=== PATIENT | female | born 1945 | race Caucasian/White ===

== ENCOUNTER 2018-02-12 11:42 | Emergency (ER) | payer OTHER ==
[~2018-02-12] VITALS: Ht 160 cm; Wt 50.0 kg
[2018-02-12 12:17] VITALS: BP 107/68
== END 2018-02-12 17:53 | disposition left against medical advice (07) ==
LOC: ER 11:42
DX: Z53.21 Procedure and treatment not carried out due to patient leaving prior to being seen by health care provider (principal)

== ENCOUNTER 2018-02-12 18:05 | Emergency (ER) | payer OTHER ==
[~2018-02-12] VITALS: Ht 162.6 cm; Wt 61.0 kg
[2018-02-12 18:59] VITALS: BP 132/70
== END 2018-02-12 22:27 | disposition left against medical advice (07) ==
LOC: ER 18:05
DX: Z53.21 Procedure and treatment not carried out due to patient leaving prior to being seen by health care provider (principal)

== ENCOUNTER 2019-06-05 02:55 | Emergency (ER) | payer MEDICARE, MEDICAID ==
[~2019-06-05] VITALS: Ht 160 cm; Wt 50.0 kg
[2019-06-05 06:13] VITALS: BP 134/87
== END 2019-06-05 06:14 | disposition home or self-care (01) ==
LOC: ER 03:54
DX: J01.90 Acute sinusitis, unspecified (principal); J06.9 Acute upper respiratory infection, unspecified
CPT/HCPCS: 71045; 99283

== ENCOUNTER 2019-08-12 13:16 | Inpatient (IN) | payer MEDICARE, OTHER ==
[~2019-08-12] VITALS: Ht 160 cm; Wt 47.6 kg
[2019-08-12] MEDS ORDERED: VISCOUS LIDOCAINE 2% 15 ML UDC PO STA (13:57)
[2019-08-12] MEDS ORDERED: SODIUM CHLORIDE 0.9% 1,000 ML IV ONE (13:57)
[2019-08-12] MEDS ORDERED: MAGNESIUM/ALUMINUM HYDROXIDE/SIMETHICONE 30ML UDC PO STA (13:57)
[2019-08-12] MEDS ORDERED: DICYCLOMINE 10 MG/5 ML ORAL SYR PO STA (13:57)
[2019-08-12 15:10] LABS: HEMATOCRIT. 40.4 % (36.0-48.0); HEMOGLOBIN. 13.9 g/dL (12.0-16.0); MEAN CORPUSCULAR HEMOGLOBIN 30.6 pg (28.0-32.0); MEAN CORPUSCULAR VOLUME 88.9 fL (81.0-99.0); PLATELET 182 x1000/uL (130-400); RED BLOOD CELL COUNT 4.55 mill/uL (4.2-5.4); RED CELL DISTRIBUTION WIDTH 13.5 % (11.6-14.6)
[2019-08-12 15:22] LABS: CHLORIDE 105 mEq/L (98-107)
[2019-08-12] MEDS ORDERED: POTASSIUM CHLORIDE 20MEQ TABLET SR PO ONE (15:45)
[2019-08-12 16:40] LABS: PLATELET ESTIMATE NORMAL
[2019-08-12 17:43] LABS: CLARITY URINE CLOUDY (CLEAR); COLOR URINE DARK YELLOW (YELLOW); KETONES URINE 1+ (NEGATIVE); LEUKOCYTE ESTERASE URINE 2+ (NEGATIVE); NITRITE URINE NEGATIVE (NEGATIVE); OCCULT BLOOD URINE NEGATIVE (NEGATIVE); PROTEIN URINE 2+ (NEGATIVE)
[2019-08-12] MEDS ORDERED: METRONIDAZOLE 500MG TABLET PO SCH (22:11)
[2019-08-12] MEDS ORDERED: MORPHINE SULFATE 4 MG/ML CPJ (NOT FOR IM USE) IV PRN (22:15)
[2019-08-13] MEDS: LORAZEPAM 1MG TABLET PO PRN (03:51)
[2019-08-13 04:30] VITALS: BP 142/69
[2019-08-13] MEDS ORDERED: MORPHINE SULFATE 2 MG/ML CPJ (NOT FOR IM USE) IV PRN (05:45)
[2019-08-13] MEDS: METRONIDAZOLE 500MG TABLET PO SCH ×3 (06:32→20:55)
[2019-08-13 08:00] VITALS: BP 139/67
[2019-08-13] MEDS: SODIUM CHL 0.9% + KCL 20MEQ/L 1,000 ML IV SCH ×2 (08:00→17:50)
[2019-08-13 09:37] LABS: HEMATOCRIT 38.5 % (36.0-48.0); HEMOGLOBIN 13.2 g/dL (12.0-16.0); MEAN CORPUSCULAR HEMOGLOBIN 30.6 pg (28.0-32.0); MEAN CORPUSCULAR VOLUME 89.2 fL (81.0-99.0); PLATELET 187 x1000/uL (130-400); RED BLOOD CELL COUNT 4.31 mill/uL (4.2-5.4); RED CELL DISTRIBUTION WIDTH 13.5 % (11.6-14.6)
[2019-08-13 09:40] LABS: CHLORIDE 110 mEq/L (98-107)
[2019-08-13 12:00] VITALS: BP 126/74
[2019-08-13] MEDS: CEFTRIAXONE 1,000 MG in DEXTROSE 5% WATER 50 ML IV SCH (13:44)
[2019-08-13 16:00] VITALS: BP 129/70
[2019-08-13 20:00] VITALS: BP 166/76
[2019-08-14] VITALS (7 sets, daily range): BP systolic 140–160; BP diastolic 54–73
[2019-08-14] MEDS: LORAZEPAM 1MG TABLET PO PRN ×3 (01:15→20:55)
[2019-08-14] MEDS: SODIUM CHL 0.9% + KCL 20MEQ/L 1,000 ML IV SCH ×2 (05:15→12:52)
[2019-08-14] MEDS: METRONIDAZOLE 500MG TABLET PO SCH ×3 (06:26→21:01)
[2019-08-14] MEDS: OMEPRAZOLE 20MG CAPSULE EXTENDED RELEASE PO SCH (06:26)
[2019-08-14] MEDS ORDERED: ACETAMINOPHEN 325MG TABLET PO PRN (10:15)
[2019-08-14] MEDS: CEFTRIAXONE 1,000 MG in DEXTROSE 5% WATER 50 ML IV SCH (13:00)
[2019-08-14] MEDS ORDERED: AMLODIPINE 5MG TABLET PO NR (16:00)
[2019-08-14] MEDS: AMLODIPINE 5MG TABLET PO SCH (20:43)
[2019-08-15] VITALS: BP 143/57
[2019-08-15] MEDS: SODIUM CHL 0.9% + KCL 20MEQ/L 1,000 ML IV SCH ×3 (01:27→21:11)
[2019-08-15 04:00] VITALS: BP 148/88
[2019-08-15] MEDS: OMEPRAZOLE 20MG CAPSULE EXTENDED RELEASE PO SCH (06:21)
[2019-08-15] MEDS: METRONIDAZOLE 500MG TABLET PO SCH ×3 (06:21→21:09)
[2019-08-15 08:00] VITALS: BP 132/72
[2019-08-15] MEDS: AMLODIPINE 5MG TABLET PO SCH ×2 (09:43→21:11)
[2019-08-15 12:00] VITALS: BP 149/66
[2019-08-15] MEDS ORDERED: NICOTINE 14MG PATCH TD NR (13:00)
[2019-08-15] MEDS ORDERED: LOPERAMIDE HCL 2MG CAPSULE PO PRN (13:30)
[2019-08-15] MEDS ORDERED: CEFTRIAXONE 1 G PREMIX 50 ML IV SCH (14:30)
[2019-08-15] MEDS ORDERED: NICO-645 TP (14:32)
[2019-08-15] MEDS ORDERED: LOPE2CAP MT (14:32)
[2019-08-15 16:00] VITALS: BP 119/47
[2019-08-15 20:00] VITALS: BP 152/77
[2019-08-15] MEDS: LORAZEPAM 1MG TABLET PO PRN (21:11)
[2019-08-16] VITALS: BP 146/79
[2019-08-16 04:00] VITALS: BP 136/61
[2019-08-16] MEDS: OMEPRAZOLE 20MG CAPSULE EXTENDED RELEASE PO SCH (05:47)
[2019-08-16] MEDS: METRONIDAZOLE 500MG TABLET PO SCH (06:07)
[2019-08-16] MEDS: LORAZEPAM 1MG TABLET PO PRN (09:48)
[2019-08-16] MEDS: AMLODIPINE 5MG TABLET PO SCH (09:49)
== END 2019-08-16 14:15 | disposition home or self-care (01) | DRG 690 ==
LOC: ER 13:16 → EDBEDREQ 18:45 → 5WST 22:30 → EDBEDREQ 22:32 → ENRESERV 08-13 04:06 → 6EST 08-14 16:27
PROVIDERS: ADMIT Internal Medicine; ATTEND Internal Medicine
DX: N39.0 Urinary tract infection, site not specified (principal); E44.0 Moderate protein-calorie malnutrition; Z68.1 Body mass index [BMI] 19.9 or less, adult; A08.4 Viral intestinal infection, unspecified; E87.6 Hypokalemia; G43.909 Migraine, unspecified, not intractable, without status migrainosus; I10 Essential (primary) hypertension; J84.89 Other specified interstitial pulmonary diseases; Z86.73 Personal history of transient ischemic attack (TIA), and cerebral infarction without residual deficits; Z88.6 Allergy status to analgesic agent
CPT/HCPCS: 36415; 71045; 80053; 81003; 85025; 85027; 87015; 87045; 87427; 87449; 87493; 93005; 99285; J0696; J2270; J3480; J7030; J7060

== ENCOUNTER 2019-10-18 22:04 | Emergency (ER) | payer MEDICARE, OTHER ==
[~2019-10-18] VITALS: Ht 160 cm; Wt 48.0 kg
[~2019-10-18 22:04] MED LIST: LOPE2CAP MT; NICO-645 TP
[2019-10-18] MEDS ORDERED: ACETAMINOPHEN WITH CODEINE 300/30MG TABLET PO STA (23:15)
[2019-10-18 23:42] LABS: EOSINOPHILS % 2.9 % (0.0-5.0); HEMATOCRIT. 42.4 % (36.0-48.0); HEMOGLOBIN. 14.5 g/dL (12.0-16.0); LYMPHOCYTES % 24.9 % (20.0-50.0); MEAN CORPUSCULAR HEMOGLOBIN 31.2 pg (28.0-32.0); MEAN CORPUSCULAR VOLUME 91.1 fL (81.0-99.0); MEAN PLATELET VOLUME 8.9 fl (7.4-10.4); MONOCYTES % 10.1 % (2.0-8.0); NEUTROPHILS % 61.1 % (40.0-76.0); PLATELET 195 x1000/uL (130-400); RED BLOOD CELL COUNT 4.66 mill/uL (4.2-5.4); RED CELL DISTRIBUTION WIDTH 15.4 % (11.6-14.6)
[2019-10-18 23:54] LABS: CLARITY URINE CLEAR (CLEAR); COLOR URINE YELLOW (YELLOW); KETONES URINE NEGATIVE (NEGATIVE); LEUKOCYTE ESTERASE URINE 2+ (NEGATIVE); NITRITE URINE NEGATIVE (NEGATIVE); OCCULT BLOOD URINE NEGATIVE (NEGATIVE); PROTEIN URINE TRACE (NEGATIVE); SPECIFIC GRAVITY URINE 1.019 (1.005-1.030)
[2019-10-19 00:09] LABS: CHLORIDE 109 mEq/L (98-107)
[2019-10-19] MEDS ORDERED: CEFTRIAXONE 1 G PREMIX 50 ML IV ONE (02:15)
[2019-10-19 04:37] VITALS: BP 140/80
== END 2019-10-19 07:13 | disposition home or self-care (01) ==
LOC: ER 22:17
DX: L03.811 Cellulitis of head [any part, except face] (principal); N39.0 Urinary tract infection, site not specified; J20.9 Acute bronchitis, unspecified; I10 Essential (primary) hypertension; Z86.73 Personal history of transient ischemic attack (TIA), and cerebral infarction without residual deficits; Z59.0 Homelessness
CPT/HCPCS: 36415; 71045; 80053; 81003; 85025; 93005; 96365; 99285; J0696